=== PATIENT | female | born 1970 ===

== ENCOUNTER 2018-09-04 09:21 | Observation (INO) | payer OTHER, SELFPAY ==
[~2018-09-04 09:21] MED LIST: DEMEROL IV PRN; DILAUDID IV PRN; LACTATED RINGERS 1,000 ML IV SCH; NEURONTIN PO NR; VERSED IV NR; ZOFRAN IV PRN
[2018-09-04] MEDS ORDERED: LACTATED RINGERS 1,000 ML IV SCH (10:00)
[2018-09-04] MEDS ORDERED: ANCEF/STERILE WATER 2 GM/20 ML IV NR (10:54)
--- NOTE | 2018-09-04 10:58 | History and Physical Report ---
History of Present Illness Date of examination: 09/04/18 Chief complaint: Pelvic pain History of present illness: Patient is a 47-year-old female LMP 08/15/2018 who presents for s urgical evaluation and treatment of pelvic pain due to uterine fibroids. Pelvic ultrasound showed the uterus to be enlarged measuring 12 x 8 x 7 cm with thick endometrium and a left ovarian cyst. Endometrial biopsy was benign. She now presents for a Robotic-Assisted Total Hysterectomy with bilateral salpingectomy and ovarian conservation. 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 Social history: no significant social history, Medications and Allergies Allergies Allergy/AdvReac Type Severity Reaction Status Date / Time No Known Allergies Allergy Unverified 09/03/18 11:01 Home Medications Medication Instructions Recorded Confirmed Last Taken Type No Known Home Medications [No 09/03/18 09/03/18 Unknown History Reported Home Medications] Active Meds: Active Medications Celecoxib (Celebrex) 200 mg PO PREOP NR Stop: 09/04/18 20:00 Gabapentin (Neurontin) 300 mg PO PREOP NR Stop: 09/04/18 20:00 Hydromorphone HCl (Dilaudid) 0.5 mg IV Q10MIN PRN PRN Reason: Pain , Severe (7-10) Stop: 09/04/18 20:00 Lactated Ringer's (Lactated Ringers) 1,000 mls @ 100 mls/hr IV DIRECT BARB Meperidine HCl (Demerol) 25 mg IV ONCE PRN PRN Reason: Shivering Stop: 09/04/18 20:00 Midazolam HCl (Versed) 2 mg IV PREOP NR Stop: 09/04/18 23:59 Ondansetron HCl (Zofran) 4 mg IV ONCE PRN PRN Reason: Nausea And Vomiting Stop: 09/04/18 22:00 Review of Systems All systems: negative - Physical Exam Breasts: Positive: deferred Cardiovascular: Regular rate Lungs: Positive: Clear to auscultation Abdomen: Positive: normal appearance Genitourinary (Female): Positive: normal external genitalia Vagina: Positive: normal moisture Uterus: Positive: enlarged Extremities: Positive: normal Results Result Diagrams: 09/04/18 10:10 All other labs normal. Ultrasound: report reviewed Assessment and Plan - Patient Problems (1) Uterine fibroid Onset Date: 09/04/18 Current Visit: Yes Status: Acute Qualifiers: Uterine leiomyoma location: intramural, submucous, and subserous Qualified Code(s): D25.1 - Intramural leiomyoma of uterus; D25.0 - Submucous leiomyoma of uterus; D25.2 - Subserosal leiomyoma of uterus Plan to address problem: A: Uterine fibroids Menorrhagia Left ovarian cyst P: Will admit for a robotic-assisted total hysterectomy with bilateral salpingectomy (2) Menorrhagia with regular cycle Onset Date: 09/04/18 Current Visit: Yes Status: Chronic (3) Left ovarian cyst Onset Date: 09/04/18 Current Visit: Yes Status: Chronic (4) Uterine adhesions Onset Date: 09/04/18 Current Visit: Yes Status: Chronic
[2018-09-04] MEDS ORDERED: ANCEF/STERILE WATER 2 GM/20 ML 2 GM/20 ML SYRINGE IV SCH (11:00)
[2018-09-04 11:05] LABS: Basophils # (Auto) 0.1 K/mm3 (0.0-0.1); Eosinophils # (Auto) 0.2 K/mm3 (0.0-0.4); Eosinophils % (Auto) 2.6 % (0.0-4.3); Hematocrit 39.8 % (30.3-42.9); Hemoglobin 13.4 gm/dl (10.1-14.3); Lymphocytes # (Auto) 1.5 K/mm3 (1.2-5.4); Lymphocytes % (Auto) 24.2 % (13.4-35.0); Mean Corpuscular HGB Conc 34 % (30-34); Mean Corpuscular Volume 86 fl (79-97); Monocytes # (Auto) 0.5 K/mm3 (0.0-0.8); Monocytes % (Auto) 7.4 % (0.0-7.3); Platelet Count 291 K/mm3 (140-440); Red Blood Count 4.65 M/mm3 (3.65-5.03); Red Cell Distribution Width 13.5 % (13.2-15.2)
[2018-09-04] MEDS ORDERED: SUBLIMAZE ONE (11:28)
--- NOTE | 2018-09-04 11:50 | Anesthesia Consultation ---
Anesthesia Consult and Med Hx - Airway Anesthetic Teeth Evaluation: Good ROM Head & Neck: Adequate Mental/Hyoid Distance: Adequate Mallampati Class: Class II Intubation Access Assessment: Probably Good - Pulmonary Exam CTA: Yes - Cardiac Exam Cardiac Exam: RRR - Pre-Operative Health Status ASA Pre-Surgery Classification: ASA2 Proposed Anesthetic Plan: General Nerve Block: tap - Pulmonary Hx Smoking: No Hx Asthma: No Hx Respiratory Symptoms: No SOB: No COPD: No Home Oxygen Therapy: No Hx Pneumonia: No Hx Sleep Apnea: No - Cardiovascular System Hx Hypertension: Yes Hx Coronary Artery Disease: No Hx Heart Attack/AMI: No Hx Angina: No Hx Percutaneous Transluminal Coronary Angioplasty (PTCA): No Hx Cardia Arrhythmia: No Hx Pacemaker: No - Central Nervous System Hx Psychiatric Problems: No - Other Systems Hx Cancer: No
--- NOTE | 2018-09-04 11:51 | Anesthesia Day of Surgery ---
Anesthesia Day of Surgery - Day of Surgery Patient Examined: Yes Patient H&P Reviewed: Yes Patient is NPO: Yes Beta Blockers: No Cardiac Clearance: No Pulmonary Clearance: No Theron's Test: N/A
[2018-09-04] MEDS ORDERED: NEOSPORIN GU IR ONE (12:11)
[2018-09-04] MEDS ORDERED: DIPRIVAN 10 MG/ML IV ONE (12:33)
[2018-09-04] MEDS ORDERED: DILAUDID ONE (12:33)
[2018-09-04] MEDS ORDERED: QUELICIN ONE (12:34)
[2018-09-04] MEDS ORDERED: ZEMURON IV ONE (12:37)
[2018-09-04] MEDS ORDERED: XYLOCAINE MPF 2% ONE (12:38)
[2018-09-04] MEDS ORDERED: ZOFRAN ONE (14:26)
[2018-09-04] MEDS ORDERED: DECADRON ONE (14:26)
[2018-09-04] MEDS ORDERED: NACL 0.9% IR ONE ×2 (14:46)
[2018-09-04] MEDS ORDERED: MILK OF MAGNESIA PO PRN (14:53)
[2018-09-04] MEDS ORDERED: PERCOCET 5/325 PO PRN (14:53)
[2018-09-04] MEDS ORDERED: NORCO 5/325 PO PRN (14:53)
[2018-09-04] MEDS ORDERED: TYLENOL PO PRN (14:53)
[2018-09-04] MEDS ORDERED: D5LR 1,000 ML IV SCH (15:00)
--- NOTE | 2018-09-04 15:05 | Operative Report ---
Operative Report Operative Report: Date of procedure: 09/04/2018 Pre-operative diagnosis: 1. Uterine fibroids 2. Menorrhagia 3. Left ovari an cyst Post-operative diagnosis: Same with extensive uterine adhesions Procedure name(s): 1. Robotic-assisted total hysterectomy 2. Bilateral salpingectomy 3. Lysis of extensive uterine adhesions Surgeon: Abraham Sal MD Patent Legal Assistant: Antonella Lin CSA Anesthesia: BOBBY Block followed by general endotracheal intubation by Dr. Rosario EBL: 100 mls Findings: A 12-14 weeks' size myomatous uterus with extensive uterine adhesions to the anterior abdominal wall. Normal fallopian tubes bilaterally. A cystic left ovary and normal right ovary. Procedure: After the patient's first correctly identified she was prepped and draped in the usual sterile fashion and placed in the dorsolithotomy position. The bladder was first catheterized using Navarro catheter and the speculum was placed in the vagina and the anterior lip of the cervix was grasped using a single-tooth tenaculum, and the medium Vesicare cup was placed. The tenaculum and speculum was then removed from the vagina and attention was then turned to the abdomen. The skin knife was used to make a small incision approximately 5 cm above the umbilicus through which a 12 mm trocar was placed under direct visualization. After adequate amount of abdominal insufflation visualization of the pelvic organs found the uterus to be enlarged and the tubes and ovaries were found to be normal bilaterally with a small left ovarian cyst. A right and left paramedian incision was made through which the 8 mm trochars were placed under direct visualization and a 5 mm trocar was placed in the right upper quadrant. The patient was then placed in steep Trendelenburg positioning and the robot was docked on the patient's left side. After all the robotic ports were connected and adequate functioning of the robotic arms were tested the surgeon then proceeded to the console to begin the hysterectomy. First the left round ligament was grasped, cauterized and cut, the left utero- ovarian ligaments were grasped, cauterized and cut, and the left fallopian tube also grasped, cauterized and cut along the mesosalpinx, thus freeing the left ovary from the left uterine sidewall. The left ovarian cyst was drained of clear fluid. The same procedure was performed on the right. The right round ligament was grasped, cauterized and cut, the right utero-ovarian ligaments were grasped, cauterized and cut, and the right fallopian tube also grasped, cauterized and cut along the mesosalpinx, thus freeing the right ovary from the right uterine sidewall. The uterus is densely adherent to the anterior abdominal wall. The adhesions were taken down using both sharp and blunt dissection, thus freeing the uterus from the anterior abdominal wall. The bladder flap was taken down anteriorly and the uterine vessels were grasped, cauterized and cut bilaterally. The cardinal ligaments were sequentially grasped, cauterized and cut down to the level of the uterosacral ligaments. At this time the posterior colpotomy was performed over the Vcare cup, and the cervix was circumscribed beginning posteriorly and meeting anteriorly until the cervix was freed. The cervix and uterus was then removed through the vagina and sent to pathology. The vaginal cuff was then closed using 2-0 Vloc suture in a running fashion. Irrigation was then performed and after good hemostasis was achieved the procedure was considered complete. The Tisseel sealant was then sprayed across the vaginal cuff site, and after excellent hemostasis was assured Interceed was placed across the vaginal cuff site. All instruments were then removed from the abdominal cavity. And each incision was closed using 0 Vicryl suture in a [id number] configuration on the fascia followed by 4-0 Monocryl suture in a sub-cuticular fashion on the skin. Each incision was also infiltrated using 0.5% Marcaine solution. The vaginal pack was removed. The patient tolerated the procedure well and was transported to the recovery room in stable condition.
[2018-09-04] MEDS: TORADOL IV SCH ×2 (15:40→22:09)
--- NOTE | 2018-09-04 19:15 | Post Anesthesia Evaluation ---
- Post Anesthesia Evaluation Patient Participated: Yes Airway Patent: Yes Stable Respiratory Function: Yes Nausea/Vomiting: No Temp > 96.8F: Yes Pain Manageable: Yes Adequeate Hydration: Yes Anesthesia Complications: No
[2018-09-04] MEDS: ANCEF/NS 1 GM/50 ML 1 GM/50 ML BAG IV SCH (20:21)
[2018-09-05] MEDS: ANCEF/NS 1 GM/50 ML 1 GM/50 ML BAG IV SCH (03:54)
[2018-09-05] MEDS: TORADOL IV SCH ×2 (03:54→09:00)
[2018-09-05 05:52] LABS: Hemoglobin 12.4 gm/dl (10.1-14.3)
--- NOTE | 2018-09-05 08:07 | Progress Note ---
Assessment and Plan - Patient Problems (1) Uterine fibroid Onset Date: 09/04/18 Current Visit: Yes Status: Resolved Qualifiers: Uterine leiomyoma location: intramural, submucous, and subserous Qualified Code(s): D25.1 - Intramural leiomyoma of uterus; D25.0 - Submucous leiomyoma of uterus; D25.2 - Subserosal leiomyoma of uterus (2) Menorrhagia with regular cycle Onset Date: 09/04/18 Current Visit: Yes Status: Resolved (3) Left ovarian cyst Onset Date: 09/04/18 Current Visit: Yes Status: Resolved (4) Uterine adhesions Onset Date: 09/04/18 Current Visit: Yes Status: Resolved (5) Status post robot-assisted surgical procedure Onset Date: 09/05/18 Current Visit: Yes Status: Resolved Plan to address problem: A: S/P RATH - POD #1 Doing well P: May go home today. Subjective - Subjective Date of service: 09/05/18 Principal diagnosis: s/p RATH - POD #1 Interval history: Patient is s/p a Robotic-Assisted Total Hysterectomy with bilateral salpingectomy and feeling well. No complaints. She is tolerating a reg diet without nausea or vomiting, ambulating and voiding without difficulty. Patient reports: appetite normal, voiding normally, pain well controlled, flatus, ambulating normally, no dizzy ambulation, no nauseated Objective - Vital Signs Latest vital signs: Vital Signs Temp Pulse Resp BP BP Pulse Ox 09/05/18 04:10 98.8 F 78 18 117/67 09/04/18 23:30 98.6 F 77 16 112/69 09/04/18 19:30 98.7 F 71 18 123/72 09/04/18 16:25 98.8 F 68 14 117/67 98 09/04/18 16:00 71 12 116/73 100 09/04/18 15:45 97.5 F L 71 12 128/73 100 09/04/18 15:40 12 09/04/18 15:30 62 12 124/72 100 09/04/18 15:21 12 09/04/18 15:15 70 13 135/76 100 09/04/18 15:05 70 12 131/75 100 09/04/18 15:00 74 11 L 135/80 100 09/04/18 14:55 73 14 124/67 100 09/04/18 14:50 98.3 F 77 14 116/74 99 09/04/18 11:45 64 12 126/75 97 09/04/18 11:40 65 12 123/71 98 09/04/18 11:35 63 11 L 116/68 99 09/04/18 11:30 63 15 116/64 97 09/04/18 11:25 64 14 131/90 97 09/04/18 10:20 99.2 F 73 20 113/74 98 09/04/18 10:00 99.2 F 73 20 113/74 98 Intake and Output 09/04/18 09/05/18 09/05/18 22:59 06:59 14:59 Intake Total 650 300 Output Total 150 1700 Balance 500 -1400 Intake: IV 50 ANCEF/NS 1 GM/50 ML 1 gm 50 In 50 ml @ 100 mls/hr IV Q8H [facility] Rx#:[id number] Oral 300 Intake, Free Water 300 300 Output: Urine 150 1700 Indwelling Catheter 150 1700 Other: Total, Intake Amount 300 Total, Output Amount 150 900 Voiding Method Indwelling Catheter Indwelling Catheter - Exam Cardiovascular: Present: Regular rate Lungs: Present: Clear to auscultation Abdomen: Present: normal appearance, soft Extremities: Present: normal Incision: Present: normal, dry, intact - Labs Labs: Abnormal lab results 09/04/18 Range/Units 10:10 Jasper % (Auto) 7.4 H (0.0-7.3) % Laboratory Tests 09/04/18 09/05/18 10:10 05:23 WBC 6.1 RBC 4.65 Hgb 13.4 12.4 Hct 39.8 36.0 MCV 86 MCH 29 MCHC 34 RDW 13.5 Plt Count 291 Lymph % (Auto) 24.2 Jasper % (Auto) 7.4 H Eos % (Auto) 2.6 Baso % (Auto) 1.0 Lymph # 1.5 Jasper # 0.5 Eos # 0.2 Baso # 0.1 Seg Neutrophils % 64.8 Seg Neutrophils # 4.0
[2018-09-05 08:40] VITALS: BP 109/73
--- NOTE | 2018-09-05 09:33 | Discharge Summary ---
Providers - Providers Date of Admission: 09/04/18 14:53 Date of discharge: 09/05/18 Attending physician: JOLIE MIRAMONTES Primary care physician: WAGNER MCGARRY Hospitalization Reason for admission: other (Symptomatic uterine fibroids; Menorrhagia; Left ovarian cyst) Procedure: other (Robotic Assisted Total Hysterectomy with Bilateral Salpingectomy) Episiotomy: none Laceration: none Incision: normal, dry, intact Other procedures: none complications: none Discharge diagnosis: other (s/p RATH) Hospital course: Patient is a 47-year-old female LMP 08/15/2018 who presented for surgical evaluation and treatment of pelvic pain due to uterine fibroids. Pelvic ultrasound showed the uterus to be enlarged measuring 12 x 8 x 7 cm with thick endometrium and a left ovarian cyst. Endometrial biopsy was benign. She underwent an uncomplicated Robotic-Assisted Total Hysterectomy with bilateral salpingectomy and tolerated the procedure well. By POD #1 she was tolerating a reg diet without nausea or vomiting, ambulating and voiding without difficulty. She was therefore discharged to home on POD #1 in stable condition. Condition at discharge: Good Disposition: DC-01 TO HOME OR SELFCARE - Discharge Diagnoses (1) Uterine fibroid Status: Resolved Qualifiers: Uterine leiomyoma location: intramural, submucous, and subserous Qualified Code(s): D25.1 - Intramural leiomyoma of uterus; D25.0 - Submucous leiomyoma of uterus; D25.2 - Subserosal leiomyoma of uterus (2) Menorrhagia with regular cycle Status: Resolved (3) Left ovarian cyst Status: Resolved (4) Uterine adhesions Status: Resolved Plan - Discharge Medications Prescriptions: HYDROcodone/APAP 5-325 [Jackson 5-325 mg TAB] 1 each PO Q6HR PRN #30 tablet PRN Reason: Pain, Moderate (4-6) Ibuprofen [Motrin] 800 mg PO Q8HR PRN #30 tablet PRN Reason: Moder Pain Unrelieved By Jackson - Provider Discharge Summary Activity: routine, no sex for 6 weeks, no heavy lifting 4 weeks, no strenuous exercise Diet: routine Instructions: routine Additional instructions: [] Smoking cessation referral if applicable(refer to patient education folder for contact #) [] Refer to [facility]'s [facility] Booklet Call your doctor immediately for: * Fever > 100.5 * Heavy vaginal bleeding ( >1 pad per hour) * Severe persistent headache * Shortness of breath * Reddened, hot, painful area to leg or breast * Drainage or odor from incision. * Keep incision clean and dry at all times and follow doctor's instructions regarding bathing/showering - Follow up plan Follow up: WAGNER MCGARRY MD [Primary Care Provider] - 7 Days JOLIE MIRAMONTES MD [Staff Physician] - 14 Days
== END 2018-09-05 12:30 | disposition home or self-care (01) ==
LOC: OR 09:21 → OB 14:53
PROVIDERS: ADMIT Obstetrics & Gynecology; ATTEND Obstetrics & Gynecology
DX: D25.9 Leiomyoma of uterus, unspecified (principal); N92.0 Excessive and frequent menstruation with regular cycle; N83.202 Unspecified ovarian cyst, left side; Z98.890 Other specified postprocedural states
CPT/HCPCS: 36415; 58573; 64450; 81025; 85014; 85018; 85025; 88307; 96365; 96366; 96375; 96376; A4217; C1765; C9250; G0378; J0330; J0690; J1100; J1170; J1885; J2250; J2405; J2704; J3010; J7120; J7121; S2900